=== PATIENT | male | born 1995 | race African-American/Black ===

== ENCOUNTER 2024-01-04 14:21 | Emergency (ER) | payer BC, SELFPAY ==
[2024-01-04] VITALS (11 sets, daily range): BP systolic 101–124; BP diastolic 58–70; PULSE 58–135; RESP 14–20; TEMP 36.6; O2SAT 92–100
--- NOTE | 2024-01-04 14:28 | ED.ALLEREA ---
HPI - Allergic Reaction General Chief complaint: Allergic Reaction Stated complaint: allergic reaction Time Seen by Provider: 01/04/24 14:28 Focused HPI: Patient is a 28-year-old male who presents the ED with report of allergic reaction. Patient reports he was stung by a several bees to multiple areas of his face Just prior to arrival. He has since developed swelling to his face, right periorbital region, lips. He states he feels as though his throat is swelling and reports mild difficulty breathing. He also reports rash and itching diffusely throughout his body. He has never had an allergic reaction like this before. Denies nausea, vomiting, CP. GENERAL: Ill-appearing, well-nourished, and in no acute distress. HEAD: Normocephalic, atraumatic. EYES: PERRL/EOMI, conjunctiva clear bilaterally. Diffuse swelling to right periorbital region. Minimal swelling to left periorbital region. ENT: No stridor. Maintaining secretions. Mild swelling to upper lip. CHEST: Clear to auscultation. ?No respiratory distress. HEART: Regular rate and rhythm.? SKIN: Diffuse urticaria to trunks, upper extremities, chest, back. NEURO: ?Alert and oriented x3. Patient screened in triage and initial orders placed.? ?Additional care and disposition to be based upon?diagnostic testing and treatment. Source: patient Mode of arrival: ambulatory Limitations: no limitations Related Data Allergies Allergy/AdvReac Type Severity Reaction Status Date / Time bee venom protein (honey bee) Allergy Swelling Verified 01/04/24 15:29 [bees] Review of Systems Review of Systems: All systems reviewed & are unremarkable except as noted in HPI. All systems reviewed & are unremarkable except as noted in HPI and below Exam Narrative: GENERAL: Ill-appearing, well-nourished, and in no acute distress. HEAD: Normocephalic, atraumatic. EYES: PERRL/EOMI, conjunctiva clear bilaterally. Diffuse swelling to right periorbital region, upper/lower eyelids. Minimal swelling to left periorbital region, mostly inferior. ENT: No stridor. Maintaining secretions. Mild swelling to upper lip, more on R side. CHEST: Clear to auscultation. ?No respiratory distress. No stridor. No tachypnea. HEART: Tachycardic with regular rhythm. Peripheral pulses intact. SKIN: Diffuse urticaria to trunks, upper extremities, chest, back. Skin is dry. NEURO: ?Alert and oriented x3. Course Vital Signs Vital signs: Vital Signs Temperature 97.9 F 01/04/24 14:25 Pulse Rate 135 H 01/04/24 14:25 Respiratory Rate 20 01/04/24 14:25 Blood Pressure 124/64 01/04/24 14:25 Pulse Oximetry 92 01/04/24 14:25 Oxygen Delivery Room Air 01/04/24 14:25 Temperature 97.9 F 01/04/24 14:25 Pulse Rate 61 01/04/24 18:52 Respiratory Rate 15 01/04/24 18:52 Blood Pressure 112/58 L 01/04/24 18:52 Pulse Oximetry 98 01/04/24 18:52 Oxygen Delivery Room Air 01/04/24 15:30 Oxygen Flow Rate 2 01/04/24 14:34 MDM - Allergic Reaction MDM Narrative Medical decision making narrative: MSE by [email or web address] in triage. Patient initially seen by myself in triage. Initial orders were placed by myself. Resumed care. patient with anaphylaxis. Given epinephrine, Pepcid, Benadryl, Solu-Medrol. He was monitored in the ED for at least 4 hours with significant improvement of symptoms. Resting comfortably on re-evaluation. He denies any further difficulty breathing or swallowing. Urticaria is nearly resolved. Swelling around eyes is much improved. Patient is ready to go. He feels comfortable going home. Will discharge on Medrol Dosepak and will provide prescription for epinephrine pen. Patient was given strict return precautions and indications to use EpiPen home. He is in agreement with plan. Discharged in stable condition. Vital signs stable at time of D/C. Patient was placed on 2 L nasal cannula initially in triage due to oxygen saturations being 92% on room air. He had been off of
[2024-01-04] MEDS: methylPREDNISolone SOD SUCC 125 MG VIAL IV PUSH (14:36)
[2024-01-04] MEDS: EPINEPHrine HCL INJ 1 MG/ML AMPUL 0.3 MG IM (14:36)
[2024-01-04] MEDS: FAMOTIDINE 20 MG/2 ML VIAL IV PUSH (14:37)
[2024-01-04] MEDS: diphenhydrAMINE HCl INJ 50 MG/ML VIAL IV PUSH (14:40)
== END 2024-01-04 18:53 | disposition home or self-care (01) ==
PROVIDERS: Emergency Provider Physician Assistant
DX: T63.441A Toxic effect of venom of bees, accidental (unintentional), initial encounter (principal); T78.2XXA Anaphylactic shock, unspecified, initial encounter
CPT/HCPCS: 96372; 96374; 96375; 99284; J0171; J1200; J2919